=== PATIENT | female | born 1980 | race Caucasian/White ===

== ENCOUNTER 2017-03-09 11:39 | Emergency (ER) | payer MEDICAID ==
[~2017-03-09] VITALS: Ht 152.4 cm; Wt 100.0 kg
[2017-03-09 12:13] LABS: HEMATOCRIT 37.8 % (34.6-47.8); HEMOGLOBIN 12.4 g/dL (11.7-16.4); WHITE BLOOD COUNT 9.4 x10^3/uL (3.4-10)
[2017-03-09 12:33] LABS: ASPARTATE AMINO TRANSFERASE 20 U/L (15-37); BLOOD UREA NITROGEN 9 mg/dL (7-18)
[2017-03-09 12:35] LABS: ACETAMINOPHEN < 2 mcg/mL (10-30)
[2017-03-09 17:10] VITALS: BP 107/53
== END 2017-03-09 17:12 | disposition home or self-care (01) ==
LOC: ED 15:43
DX: Z00.00 Encounter for general adult medical examination without abnormal findings (principal); G40.909 Epilepsy, unspecified, not intractable, without status epilepticus; J45.909 Unspecified asthma, uncomplicated
CPT/HCPCS: 36415; 71010; 80053; 80307; 80329; 82140; 82962; 84703; 85025; 99285; G0479; G0480